=== PATIENT | female | born 1995 | race Caucasian/White ===

== ENCOUNTER 2017-07-19 15:03 | Outpatient (CLI) | payer BC ==
[~2017-07-19] VITALS: Ht 161.3 cm; Wt 61.7 kg
[2017-07-19 15:00] VITALS: BP 129/81
[2017-07-19 15:10] VITALS: BP 118/68
[2017-07-19] MEDS ORDERED: PREN1TAB86 PO (15:14)
[2017-07-19] MEDS ORDERED: SMTR50T PO (15:16)
[2017-07-19 15:41] VITALS: BP 120/70
[2017-07-19 16:08] VITALS: BP 103/59
[2017-07-19 16:16] LABS: BASOPHILS % (AUTO) 0 % (0-10); EOSINOPHILS # (AUTO) 0.1 10^3/uL (0.0-0.3); EOSINOPHILS % (AUTO) 1 % (0-10); LYMPHOCYTES # (AUTO) 1.3 X 10^3 (1.0-4.0); LYMPHOCYTES % (AUTO) 14 % (12-44); MEAN CORPUSCULAR HEMOGLOBIN 31 PG (25-34); MEAN CORPUSCULAR HGB CONC 35 G/DL (32-36); MEAN CORPUSCULAR VOLUME 89 FL (80-99); MEAN PLATELET VOLUME 11.3 FL (7.4-10.4); MONOCYTES # (AUTO) 0.8 X 10^3 (0.0-1.0); MONOCYTES % (AUTO) 9 % (0-12); NEUTROPHILS # (AUTO) 7.7 X 10^3 (1.8-7.8); NEUTROPHILS % (AUTO) 77 % (42-75); PLATELET COUNT 159 10^3/uL (130-400); RED BLOOD COUNT 3.55 10^6/uL (4.35-5.85); RED CELL DISTRIBUTION WIDTH 12.4 % (10.0-14.5); WHITE BLOOD COUNT 9.9 10^3/uL (4.3-11.0)
[2017-07-19 16:43] LABS: BAND NEUTROPHILS 8 %; BASOPHILS % (MANUAL) 0 %; EOSINOPHILS % (MANUAL) 3 %; LYMPHOCYTES % (MANUAL) 10 %; NEUTROPHILS % (MANUAL) 70 %
[2017-07-19 16:45] LABS: ALANINE AMINOTRANSFERASE 9 U/L (0-55); ALBUMIN 3.6 GM/DL (3.2-4.5); ANION GAP 10 MMOL/L (5-14); ASPARTATE AMINO TRANSFERASE 17 U/L (5-34); BILIRUBIN,TOTAL 0.3 MG/DL (0.1-1.0); BLOOD UREA NITROGEN 7 MG/DL (7-18); BUN/CREATININE RATIO 12; CALCIUM 8.5 MG/DL (8.5-10.1); CARBON DIOXIDE 21 MMOL/L (21-32); CHLORIDE 107 MMOL/L (98-107); CREATININE SERUM 0.59 MG/DL (0.60-1.30); GFR ESTIMATED > 60; GLUCOSE 93 MG/DL (70-105); POTASSIUM 3.5 MMOL/L (3.6-5.0); SODIUM 138 MMOL/L (135-145); TOTAL PROTEIN 6.4 GM/DL (6.4-8.2)
[2017-07-19 17:20] VITALS: BP 103/59
--- NOTE | 2017-07-22 17:53 | Physician Query-Final Dx ---
SILAS SILVA 07/22/17 1753: Clinic Account Progress/Dx Physician Query: Please give diagnosis Date of Service Jul 19, 2017 at 15:03 AYSHA MURILLO MD 07/23/17 0736: Clinic Account Progress/Dx DIAGNOSIS: Diagnosis -induced hypertension SILAS SILVA Jul 22, 2017 17:53 AYSHA MURILLO MD Jul 23, 2017 07:36
== END 2017-07-19 17:20 | disposition home or self-care (01) ==
LOC: WSo 15:03 → LDRP 15:04 → WSo 17:20
PROVIDERS: ATTEND Obstetrics & Gynecology
DX: O13.3 Gestational [pregnancy-induced] hypertension without significant proteinuria, third trimester (principal); Z3A.30 30 weeks gestation of pregnancy
CPT/HCPCS: 36415; 80053; 85007; 85027; 93005; 99213

== ENCOUNTER 2017-09-08 16:39 | Inpatient (IN) | payer BC ==
[2017-09-08] VITALS (19 sets, daily range): BP systolic 115–179; BP diastolic 57–107
[~2017-09-08] VITALS: Ht 162.6 cm; Wt 65.1 kg
[~2017-09-08 16:39] MED LIST: PREN1TAB86 PO; SMTR50T PO
[2017-09-08] MEDS ORDERED: D5 LR IV SOLUTION 1,000 ML IV ONE (17:07)
[2017-09-08] MEDS ORDERED: D5 LR IV SOLUTION 1,000 ML IV SCH (17:23)
[2017-09-08] MEDS ORDERED: PNV11TAB5 PO (17:27)
[2017-09-08] MEDS ORDERED: OXYTOCIN/NORMAL SALINE 500 ML IV SCH ×2 (17:30→20:02)
[2017-09-08 17:39] LABS: BILIRUBIN,URINE NEGATIVE (NEGATIVE); CLARITY,URINE CLEAR; COLOR,URINE YELLOW; GLUCOSE, URINE (UA) NEGATIVE (NEGATIVE); KETONES,URINE NEGATIVE (NEGATIVE); LEUKOCYTE ESTERASE ,URINE NEGATIVE (NEGATIVE); NITRITE,URINE NEGATIVE (NEGATIVE); PH,URINE 7 (5-9); PROTEIN,URINE NEGATIVE (NEGATIVE); UROBILINOGEN,URINE NORMAL (NORMAL)
[2017-09-08 17:45] LABS: BACTERIA,URINE NEGATIVE /HPF; SQUAMOUS EPITHELIAL CELL,UR 0-2 /HPF
[2017-09-08 18:07] LABS: BASOPHILS % (AUTO) 0 % (0-10); EOSINOPHILS % (AUTO) 0 % (0-10); HEMATOCRIT 37 % (35-52); HEMOGLOBIN 12.6 G/DL (11.5-16.0); LYMPHOCYTES # (AUTO) 1.1 X 10^3 (1.0-4.0); LYMPHOCYTES % (AUTO) 13 % (12-44); MEAN CORPUSCULAR HEMOGLOBIN 29 PG (25-34); MEAN CORPUSCULAR HGB CONC 34 G/DL (32-36); MEAN CORPUSCULAR VOLUME 85 FL (80-99); MEAN PLATELET VOLUME 11.1 FL (7.4-10.4); MONOCYTES # (AUTO) 0.6 X 10^3 (0.0-1.0); MONOCYTES % (AUTO) 7 % (0-12); NEUTROPHILS # (AUTO) 7.2 X 10^3 (1.8-7.8); NEUTROPHILS % (AUTO) 80 % (42-75); PLATELET COUNT 166 10^3/uL (130-400); RED BLOOD COUNT 4.36 10^6/uL (4.35-5.85); RED CELL DISTRIBUTION WIDTH 12.5 % (10.0-14.5)
[2017-09-08] MEDS ORDERED: BUTORPHANOL INJ 2 MG/ML (STADOL) VIAL ONE (18:14)
[2017-09-08] MEDS ORDERED: LIDOCAINE 1% INJ 20 ML (XYLOCAINE) VIAL ONE (18:29)
[2017-09-08] MEDS ORDERED: LIDOCAINE/EPI 2% 1:200,00 (XYLOCAINE) 10 ML VIAL ONE (18:30)
[2017-09-08] MEDS ORDERED: BUTORPHANOL INJ 2 MG/ML (STADOL) VIAL IV ONE (18:45)
--- NOTE | 2017-09-08 20:02 | History & Physical ---
History and Physical Date Seen by Provider: Sep 08, 2017 Time Seen by Provider: 20:00 this patient is a 22-year-old G1 white female with a due date of September 23, 2017 who presented this evening in labor. Membranes ruptured shortly after presentation. She has dilated beyond 4 cm at that point. She has had no bleeding to that point and has had no bleeding until spontaneous rupture during an exam. Patient had GBS culture after 35 weeks gestation that was negative. She's had no other problems with his VS . Allergies are none Medications are vitamins Past medical history, past surgical history, obstetric history, family history, social histories are per the antepartum record HEENT exam is normal Neck is supple no lymphadenopathy no thyromegaly Abdomen gravid soft nontender nondistended Extremities show no clubbing cyanosis. There is no Homans sign. Pelvic exam currently per the labor and delivery nurse is a cervix is 9 cm dilated. 80-90 percent effaced +1+2 station vertex Laboratory Tests Test 09/08/17 17:00 09/08/17 17:55 Range/Units Urine Color YELLOW Urine Clarity CLEAR Urine pH 7 5-9 Urine Specific [place] 1.005 L 1.016-1.022 Urine Protein NEGATIVE NEGATIVE Urine Glucose (UA) NEGATIVE NEGATIVE Urine Ketones NEGATIVE NEGATIVE Urine Nitrite NEGATIVE NEGATIVE Urine Bilirubin NEGATIVE NEGATIVE Urine Urobilinogen NORMAL NORMAL MG/DL Urine Leukocyte Esterase NEGATIVE NEGATIVE Urine RBC (Auto) NEGATIVE NEGATIVE Urine RBC NONE /HPF Urine WBC NONE /HPF Urine Squamous Epithelial Cells 0-2 /HPF Urine Crystals NONE /LPF Urine Bacteria NEGATIVE /HPF Urine Casts NONE /LPF Urine Mucus NEGATIVE /LPF Urine Culture Indicated NO White Blood Count 9.0 4.3-11.0 10^3/uL Red Blood Count 4.36 4.35-5.85 10^6/uL Hemoglobin 12.6 11.5-16.0 G/DL Hematocrit 37 35-52 % Mean Corpuscular Volume 85 80-99 FL Mean Corpuscular Hemoglobin 29 25-34 PG Mean Corpuscular Hemoglobin Concent 34 32-36 G/DL Red Cell Distribution Width 12.5 10.0-14.5 % Platelet Count 166 130-400 10^3/uL Mean Platelet Volume 11.1 H 7.4-10.4 FL Neutrophils (%) (Auto) 80 H 42-75 % Lymphocytes (%) (Auto) 13 12-44 % Monocytes (%) (Auto) 7 0-12 % Eosinophils (%) (Auto) 0 0-10 % Basophils (%) (Auto) 0 0-10 % Neutrophils # (Auto) 7.2 1.8-7.8 X 10^3 Lymphocytes # (Auto) 1.1 1.0-4.0 X 10^3 Monocytes # (Auto) 0.6 0.0-1.0 X 10^3 Eosinophils # (Auto) 0.0 0.0-0.3 10^3/uL Basophils # (Auto) 0.0 0.0-0.1 10^3/uL Lab work is reassuring Assessment and plan term at 37+ weeks' gestation with spontaneous labor and spontaneous rupture membranes. Patient has labored adequately spontaneously and is approaching second stage labor. We anticipate a vaginal delivery. 37+ weeks' gestation with spontaneous labor and spontaneous rupture membranes Allergies and Home Medications Allergies Coded Allergies: No Known Drug Allergies (Unverified , 07/19/17) Home Medications Bng345/FA/Omega3/Dha/Fish Oil 1 Each Tab.chew, 2 EACH PO DAILY, (Reported) Sumatriptan Succinate 50 Mg Tab, 50 MG PO PRN, (Reported) AYSHA MURILLO MD Sep 08, 2017 8:02 pm
[2017-09-08] MEDS ORDERED: TETANUS,DIPTH,PERTUSS P/F (BOOSTRIX) 0.5 ML VIAL IM ONE (20:15)
[2017-09-08] MEDS ORDERED: ONDANSETRON 4 MG/2 ML (SDV) Z0FRAN IVP PRN (20:15)
[2017-09-08] MEDS ORDERED: oxyCODONE/APAP 10/325MG (PERCOCET 10) TABLET PO PRN (20:15)
[2017-09-09] MEDS: DOCUSATE SODIUM 100 MG (COLACE) CAP PO SCH ×2 (00:02→08:40)
[2017-09-09] MEDS: KETOROLAC 30 MG/ML VIAL IV SCH ×2 (00:02→06:46)
--- NOTE | 2017-09-09 00:13 | OPERATIVE REPORT ---
DATE OF SERVICE: 09/08/2017 DELIVERY NOTE The patient delivered by term outlet forceps delivery, a viable female infant with Apgars of 8 and 9 at 1 and 5 minutes respectively, weight of 6 pounds and 5 ounces. Cord blood pH is pending and time was 2041. Charles forceps were applied with the presenting part at the perineum innominate, able to expel with the vertex over the perineum. Heart rate was in the 90s for about 7 minutes. Charles forceps were applied. Correct placement was confirmed and then with gentle traction with the next two contractions with gentle traction along the pelvic axis, the head delivered over the perineum. The Simpsons were removed. The delivery was accomplished in the usual manner from that point. The was bulb suctioned on delivery of the head and again on completion of delivery. The umbilical cord when pulseless was doubly clamped, the father cut the cord and the baby was passed to mom's abdomen. The had spontaneous cry, moved all extremities, had excellent tone and reflexes and the heart rate was well over 100 immediately after delivery. A midline episiotomy was performed under local analgesia. The episiotomy extended slightly at the left vaginal sulcus and the perineal skin superficially down to the left perianal verge. The sphincter muscles were intact. The defect was repaired with a single suture of 3-0 Vicryl Rapide in the usual manner until good reapproximation and good hemostasis. Sponge and needle counts were correct on completion of the repair. Estimated blood loss was around 300 mL. The remained in the LDR for recovery. The patient remained in the LDR as well. Job ID: [id number] DocumentID: [id number] Dictated Date: 09/08/2017 21:09:04 Windshield Repair Technician Date: 09/09/2017 00:12:59 Dictated By: AYSHA MURILLO MD MTDRamonita
[2017-09-09 00:30] VITALS: BP 120/69
[2017-09-09] MEDS ORDERED: WITCH HAZEL(TUCKS) 40 EA JAR ONE (00:30)
[2017-09-09] MEDS: WITCH HAZEL(TUCKS) 40 EA JAR TOP PRN (00:30)
[2017-09-09] MEDS: BENZOCAINE/MENTHOL (DERMOPLAST) 56 ML CAN TP PRN (00:30)
[2017-09-09] MEDS: CATHETER FLUSH 10 ML SYR IV SCH ×2 (03:47→06:47)
[2017-09-09 04:00] VITALS: BP 115/72
[2017-09-09] MEDS ORDERED: LIDOCAINE/EPI 2% 1:100,00 (XYLOCAINE) 20 ML VIAL INJ ONE (06:30)
[2017-09-09 08:42] VITALS: BP 118/78
--- NOTE | 2017-09-09 09:34 | Progress Note-Standard ---
Standard Progress Note Progress Notes/Assess & Plan Date Seen by Provider: Sep 09, 2017 Time Seen by Provider: 09:33 Progress/Assessment & Plan this patient is without complaint. She is ambulating, voiding, tolerating by mouth, has good pain control. Vital Signs Date Time Temp Pulse Resp B/P (MAP) Pulse Ox O2 Delivery O2 Flow Rate FiO2 09/09/17 08:42 98.0 76 18 118/78 (91) 98 Room Air 09/09/17 04:00 98.2 79 18 115/72 (86) 99 Room Air 09/09/17 00:30 98.2 78 18 120/69 (86) 100 Room Air 09/08/17 23:30 98.3 85 18 131/68 (89) Room Air 09/08/17 23:00 100 18 119/64 (82) Room Air 09/08/17 22:30 97.8 73 18 123/79 (94) Room Air 09/08/17 22:00 98.2 75 18 115/57 (76) Room Air 09/08/17 21:45 82 18 128/73 (91) Room Air 09/08/17 21:30 80 18 126/68 (87) Room Air 09/08/17 21:15 97.4 80 18 121/70 (87) Room Air 09/08/17 20:45 96.6 77 18 179/70 (106) Room Air 09/08/17 20:30 80 18 168/107 (127) Room Air 09/08/17 20:15 96.6 81 18 149/80 (103) Room Air 09/08/17 20:00 81 18 137/65 (89) Room Air 09/08/17 19:45 97.2 84 18 147/80 (102) Room Air 09/08/17 19:30 88 18 125/99 (108) Room Air 09/08/17 19:15 81 18 138/90 (106) Room Air 09/08/17 19:00 98.6 81 18 135/89 (104) Room Air 09/08/17 18:30 96 18 134/74 (94) Room Air 09/08/17 18:00 81 18 127/86 (100) Room Air 09/08/17 17:30 99.0 96 18 123/84 (97) Room Air 09/08/17 16:48 98.3 88 18 133/84 (100) Room Air vital signs are stable. Patient is afebrile. Fundus firm below the umbilicus and nontender. Extreme show no clubbing cyanosis. There is no Homans sign.There is some pretibial pitting edema that is normal. assessment and plan day number 1 status post term operative vaginal delivery doing well. Plan is for routine convalescence care today and consider discharge home tomorrow AYSHA MURILLO MD Sep 09, 2017 9:34 am
[2017-09-09] MEDS ORDERED: IBUP-1780 PO (09:35)
[2017-09-09] MEDS ORDERED: OXYC-465 PO (09:35)
[2017-09-09] MEDS ORDERED: DOCU100C37 PO (09:35)
--- NOTE | 2017-09-09 09:36 | Discharge Instructions ---
Discharge Instructions Discharge Medications New, Converted or Re-Newed RX: RX on Chart Patient Instructions Patient Instructions: as instructed Return to The Hospital For: as instructed Activity & Diet Discharge Diet: No Restrictions Activity as Tolerated: No Orders-Post D/C & Referrals Follow Up Appt: Call to make follow up appt. for patient in 4 weeks. Activity Per routine post vaginal delivery instructions. Diet as tolerated Patient may shower or tub bathe as desired. AYSHA MURILLO MD Sep 09, 2017 9:36 am
[2017-09-09] MEDS ORDERED: IBUPROFEN 800 MG (MOTRIN) TAB PO ONE (12:26)
[2017-09-09 12:30] VITALS: BP 101/66
[2017-09-09] MEDS: IBUPROFEN 800 MG (MOTRIN) TAB PO SCH ×2 (12:31→18:08)
[2017-09-09 16:34] VITALS: BP 120/81
[2017-09-09 22:15] VITALS: BP 109/66
[2017-09-10] MEDS: DOCUSATE SODIUM 100 MG (COLACE) CAP PO SCH ×2 (00:38→09:46)
[2017-09-10] MEDS: IBUPROFEN 800 MG (MOTRIN) TAB PO SCH ×3 (00:38→12:28)
[2017-09-10 00:40] VITALS: BP 126/79
[2017-09-10 06:22] VITALS: BP 103/64
--- NOTE | 2017-09-10 07:52 | Progress Note-Standard ---
Standard Progress Note Progress Notes/Assess & Plan Date Seen by Provider: Sep 10, 2017 Time Seen by Provider: 07:51 Progress/Assessment & Plan this patient is without complaint. She is ambulating, voiding, tolerating by mouth, has good pain control. Vital Signs Date Time Temp Pulse Resp B/P (MAP) Pulse Ox O2 Delivery O2 Flow Rate FiO2 09/09/17 08:42 98.0 76 18 118/78 (91) 98 Room Air 09/09/17 04:00 98.2 79 18 115/72 (86) 99 Room Air 09/09/17 00:30 98.2 78 18 120/69 (86) 100 Room Air 09/08/17 23:30 98.3 85 18 131/68 (89) Room Air 09/08/17 23:00 100 18 119/64 (82) Room Air 09/08/17 22:30 97.8 73 18 123/79 (94) Room Air 09/08/17 22:00 98.2 75 18 115/57 (76) Room Air 09/08/17 21:45 82 18 128/73 (91) Room Air 09/08/17 21:30 80 18 126/68 (87) Room Air 09/08/17 21:15 97.4 80 18 121/70 (87) Room Air 09/08/17 20:45 96.6 77 18 179/70 (106) Room Air 09/08/17 20:30 80 18 168/107 (127) Room Air 09/08/17 20:15 96.6 81 18 149/80 (103) Room Air 09/08/17 20:00 81 18 137/65 (89) Room Air 09/08/17 19:45 97.2 84 18 147/80 (102) Room Air 09/08/17 19:30 88 18 125/99 (108) Room Air 09/08/17 19:15 81 18 138/90 (106) Room Air 09/08/17 19:00 98.6 81 18 135/89 (104) Room Air 09/08/17 18:30 96 18 134/74 (94) Room Air 09/08/17 18:00 81 18 127/86 (100) Room Air 09/08/17 17:30 99.0 96 18 123/84 (97) Room Air 09/08/17 16:48 98.3 88 18 133/84 (100) Room Air vital signs are stable. Patient is afebrile. Fundus firm below the umbilicus and nontender. Extreme show no clubbing cyanosis. There is no Homans sign.There is some pretibial pitting edema that is normal. assessment and plan day number 1 status post term operative vaginal delivery doing well. Plan is for routine convalescence care today and consider discharge home tomorrow September 10, 2017 Patient is without complaint. She is ambulating, voiding, tolerating by mouth, has good pain control. Patient is requesting discharge home. Vital Signs Date Time Temp Pulse Resp B/P (MAP) Pulse Ox O2 Delivery O2 Flow Rate FiO2 09/10/17 06:22 98.0 88 18 103/64 (77) 100 Room Air 09/10/17 00:40 98.0 81 18 126/79 (95) 98 Room Air 09/09/17 22:15 98.3 80 18 109/66 (80) 100 Room Air 09/09/17 16:34 97.4 105 20 120/81 (94) 100 Room Air 09/09/17 12:30 97.9 104 18 101/66 (78) 100 Room Air 09/09/17 08:42 98.0 76 18 118/78 (91) 98 Room Air vital signs are stable. Patient is afebrile. Fundus is firm below the umbilicus and nontender. Extremities show no clubbing cyanosis. Homans sign. Minimal pretibial pitting edema that is normal. Assessment and plan day number 2 status post term operative vaginal delivery doing well. Plan is for discharge home Final Diagnosis term operative vaginal delivery AYSHA MURILLO MD Sep 10, 2017 7:52 am
[2017-09-10] MEDS ORDERED: DOCU-143 PO (07:53)
[2017-09-10] MEDS ORDERED: IBUP-1780 PO (07:53)
[2017-09-10] MEDS ORDERED: OXYC-465 PO (07:53)
[2017-09-10 09:30] VITALS: BP 110/78
[2017-09-10] MEDS: WITCH HAZEL(TUCKS) 40 EA JAR TOP PRN (14:20)
[2017-09-10] MEDS: BENZOCAINE/MENTHOL (DERMOPLAST) 56 ML CAN TP PRN (14:20)
[2017-09-10 14:55] VITALS: BP 110/78
== END 2017-09-10 14:55 | disposition home or self-care (01) | DRG 775 ==
LOC: WSo 16:39 → LDRP 16:39 → WSo 18:04 → LDRP 23:45
PROVIDERS: ADMIT Obstetrics & Gynecology; ATTEND Obstetrics & Gynecology
PROC: 0W8NXZZ Division of Female Perineum, External Approach (ICD-10-PCS; principal; 2017-09-08)
PROC: 10D07Z3 Extraction of Products of Conception, Low Forceps, Via Natural or Artificial Opening (ICD-10-PCS; 2017-09-08)
DX: O80 Encounter for full-term uncomplicated delivery (principal); Z3A.37 37 weeks gestation of pregnancy; Z37.0 Single live birth
CPT/HCPCS: 36415; 81000; 85025; 86850; 86900; 86901; 99212

== ENCOUNTER → 2021-03-09 | Outpatient (CLI) | payer BC ==
[~2021-03-09] MED LIST changes: +DOCU-143 PO; +DOCU100C37 PO; +IBUP-1780 PO; +OXYC-556 PO; +PNV11TAB5 PO
--- NOTE | 2021-03-09 11:34 | Diagnostic Imaging Report ---
INDICATION: Left shoulder pain. COMPARISON: None. FINDINGS: Multiple radiographic views of the left shoulder were obtained. There is no fracture, dislocation, or other acute bony abnormality identified. The soft tissues appear unremarkable. No radiopaque foreign bodies identified. The visualized portions of the left lung are clear. IMPRESSION: No acute fractures or dislocations of the left shoulder. Dictated by: Dictated on workstation # [id number]
== END ==
LOC: RAD FS 11:13
PROVIDERS: ATTEND Nurse Practitioner
DX: M25.512 Pain in left shoulder (principal)
CPT/HCPCS: 73030

== ENCOUNTER → 2021-03-15 | Outpatient (CLI) | payer BC ==
[~2021-03-15] MED LIST changes: +GADOBUTROL 7.5 MMOL/7.5 ML (GADAVIST) VIAL IV ONE
--- NOTE | 2021-03-15 13:07 | Diagnostic Imaging Report ---
EXAM: MRI thoracic spine w/wo con. INDICATION: Mass upper left side of the thoracic spine. COMPARISON: None. FINDINGS: Radiopaque marker indicating the area of interest overlying the posterior left back at the level of T3. There is no abnormal underlying mass, signal or enhancement identified. Normal alignment of the thoracic spine. Normal bone marrow signal. No substantial spondylotic change. No spinal canal or neural foraminal narrowing. No abnormal signal or enhancement in the thoracic spinal cord. Visualized paravertebral soft tissues are unremarkable. IMPRESSION: Normal MRI of the thoracic spine without and with IV contrast. Specifically, there is no mass, fluid collection, abnormal signal or enhancement adjacent to the radiopaque marker overlying the upper left back. Dictated by: Dictated on workstation # [id number]
== END ==
LOC: RAD 08:00
PROVIDERS: ATTEND Nurse Practitioner
DX: M89.9 Disorder of bone, unspecified (principal); M89.8X1 Other specified disorders of bone, shoulder; R22.32 Localized swelling, mass and lump, left upper limb; R22.2 Localized swelling, mass and lump, trunk
CPT/HCPCS: 72157

== ENCOUNTER 2021-05-31 15:21 | Emergency (ER) | payer BC ==
[~2021-05-31] VITALS: Ht 162 cm; Wt 54.0 kg
[~2021-05-31 15:21] MED LIST changes: -GADOBUTROL 7.5 MMOL/7.5 ML (GADAVIST) VIAL IV ONE
--- OUTSIDE RECORDS SUMMARY | 2021-05-31 15:25 | XMS REPORT | Encounter Summary ---
Author Author [facility] Organization [facility] Address Unknown Phone Unavailable Care Team Providers Care Manager Pe Name Role Phone Rachell Chen MD PCP Encounter Details Care Team Description Date Type Department Yokasta Holland PHARMD 05/12/2021 Documentation [facility] [address] [place] [address] Social History Date Tobacco Use Types Packs/Day Years Used Never Smoker Smokeless Tobacco: Never Used Comments Alcohol Use Standard Drinks/Week Never 0 (1 standard drink = 0.6 o z pure alcohol) Alcohol Habits Answer Date Recorded How often do you have a drink containing alcohol? Never 07/21/2020 How many drinks containing alcohol do you have on No t asked a typical day when you are drinking? How often do you have six or more drinks on one Not asked occasion? Comment: Not asked Sex Assigned at Date Recorded Not on file documented as of this encounter Progress Notes * Yokasta Holland PHARMD - 05/12/2021 2:16 PM CDT Pharmacy Medication Initial Assessment and Education Indication/Regimen The regimen of EMGALITY PEN 120 MG/ML SC PNIJ indefinitely is appropriate for Tal Campos Renal dose adjustments are not required. Hepatic dose adjustments are not requir ed. Dose titration is required. The following dose titration is planned 240mg once t hen 120mg monthly thereafter. The patient has the ability to self-administer the medication(s). Baseline Characteristics: Previously trialed medication(s) for this indication: nortriptyline, amitriptyli ne, topiramate, propranolol, magnesium, riboflavin, gabapentin, acetaminophen, i buprofen, ketorolac, methylprednisolone Other medication(s) patient is currently taking for this indication: sumatriptan Therapeutic Goals and Monitoring The goal of therapy is to reduce monthly migraine days and monthly acute migrain e-specific medication days. Activities of Daily Living Missed workdays in the past 30 days: 0 Days with missed social or leisure activities in the past 30 days: 0 Days unable to complete house/yard work in the past 30 days: 0 Headache Control Number of headache days: 30 Monthly migraine days: 8 Past Medical History: Medical History: Diagnosis Date Generalized headaches Migraines Allergies: No Known Allergies Immunizations: Vaccine history was reviewed with the patient. Education was provided on the imp ortance of completing vaccines, including annual influenza vaccine. There is no immunization history on file for this patient. Medication Reconciliation: Medication history and reconciliation were performed (including prescription med ications, supplements, over the counter, and herbal products). The medication li st was updated and the patients current medication list is included below. Th e patient was instructed to speak with their health care provider before startin g any new drug, including prescription or over the counter, natural / herbal pro ducts, or vitamins. Home Medications Medication Sig erenumab-aooe (AIMOVIG AUTOINJECTOR) 70 mg/mL injection syringe Inject 1 mL unde r the skin every 30 days. galcanezumab-gnlm (EMGALITY PEN) 120 mg/mL subcutaneous PEN Inject 2 mL under th e skin every 30 days for 30 days. galcanezumab-gnlm (EMGALITY PEN) 120 mg/mL subcutaneous PEN Inject 1 mL under th e skin every 30 days. norethindrone/ethinyl estradiol/iron (LOESTRIN FE) 1 mg/20 mcg tablet Take 1 tab let by mouth daily. Indications: control SUMAtriptan succinate (IMITREX) 100 mg tablet Take one tablet by mouth every 2 h ours as needed. Max dose 2 tabs per day Drug Interactions: Drug interactions were evaluated.There were not clinically significant drug inte ractions. Drug-Food Interactions: Drug-Food interactions were evaluated. There are significant drug-food interacti ons. This medication should be taken NA - injectable. Safety Precautions: Risk Evaluation and Mitigation (REMS) Assessment: REMS is not required for this medication. Safety precautions were addressed and discussed with the patient as applicable. Contraindications: Carlene Campos does not have contraindications to this medicati on. Status: Female, child-bearing potential. Education was provided. It is recommended to avoid during therapy and for at least 6 months followi ng completion of therapy. Contraception plan was not discussed. Risk versus bene fits were discussed with patient. Medication Education: Carlene Campos was provided with education on their specialty medication(s). Discu ssion with the patient included: the medication name, regimen, dosing, frequency , duration, proper administration, monitoring, common side effects, contraindica tions, safety precautions, and food/drug interactions to be aware of. Appropriat e storage, safe handling, and disposal directions were reviewed with the patient . Emphasis was placed on the importance of medication compliance. The patient's ability to self-administer medication was assessed. Requirements of the REMS pro gram were discussed with the patient as applicable. Recommended vaccinations wer e reviewed and discussed with the patient as applicable. The patient was instruc silvina to seek medical attention immediately if they experience signs of an allergi c reaction, including but not limited to: a rash; hives; itching; red, swollen, blistered, or peeling skin with or without fever. The monitoring and follow-up plan was discussed with the patient. The patient wa s instructed to contact their health care provider if their symptoms or health p roblems do not get better or if they become worse. Carlene Campos was instructed t o contact the specialty pharmacy at [phone] if they have any questions or c oncerns regarding their medication therapy. The patient was also encouraged to c ontact the pharmacist with any further questions. The patient verbalized accepta nce and understanding. Follow up Plan: The patient was counseled via telephone. The patient was provided the following type of education: full initial Carlene Campos was given the opportunity to ask questions and did not have any que stions at the time. The patient will be reassessed within 30 days. The medication(s) will be shipped from [facility]. Yokasta Holland PHARMD documented in this encounter Plan of Treatment Not on filedocumented as of this encounter Visit Diagnoses Not on filedocumented in this encounter
--- OUTSIDE RECORDS SUMMARY | 2021-05-31 15:25 | XMS REPORT | Encounter Summary ---
Author Author [facility] Organization [facility] Address Unknown Phone Unavailable Care Team Providers Care Documentation Nurse Name Role Phone Rachell Chen MD PCP Reason for Visit * Reason Onset Date Comments Medication Problem 05/10/2021 Encounter Details Care Team Description Date Type Department Omar Ames MD [address] [place] [address] Medication Problem 05/10/2021 Telephone Neurology: [facility] [address] [facility] [address] Social History Date Tobacco Use Types Packs/Day [...] on file documented as of this encounter Ordered Prescriptions Start Date End Date Prescription Sig Dispensed Refills 06/09/2021 galcanezumab-gnlm Inject 1 mL 1 mL 5 (EMGALITY PEN) 120 mg/mL under the subcutaneous PEN skin every 30 days. 05/10/2021 06/11/2021 galcanezumab-gnlm Inject 2 mL 2 mL 0 (EMGALITY PEN) 120 mg/mL under the subcutaneous PEN skin every 30 days for 30 days. documented in this encounter Miscellaneous Notes * Telephone Encounter - Monica Fox LPN - 05/10/2021 3:19 PM CDT Images from the original note were not included. Emgality script sent to pharmacy. documented in this encounter Plan of Treatment Not on filedocumented as of this encounter Visit Diagnoses Not on filedocumented in this encounter
--- OUTSIDE RECORDS SUMMARY | 2021-05-31 15:25 | XMS REPORT | Encounter Summary ---
Author Author [facility] Organization [facility] Address Unknown Phone Unavailable Care Team Providers Care Electrical Laboratory Technician Name Role Phone Rachell Chen MD PCP Encounter Details Care Team Description Date Type Department Linda Rosario 04/14/2021 Specialty [facility] tion Management [address] [place] [address] Social History Date Tobacco Use Types Packs/Day [...] as of this encounter Progress Notes * Linda Rosario - 04/14/2021 9:20 AM CDT Machine Heel Seat Fitter assistance have been received from patient Carlene Campos. Still wait ing on Dr. Pillo Cassidy for his signature. Once the documents have all been received this well be sent to [place]. GUSTAVO Smith documented in this encounter Plan of Treatment Not on filedocumented as of this encounter Visit Diagnoses Not on filedocumented in this encounter
--- OUTSIDE RECORDS SUMMARY | 2021-05-31 15:25 | XMS REPORT | Encounter Summary ---
Author Author [facility] Organization [facility] Address Unknown Phone Unavailable Care Team Providers Care Straight Line Edger Name Role Phone Rachell Chen MD PCP Encounter Details Care Team Description Date Type Department Linda Rosario 04/20/2021 Specialty [facility] tion Management [address] [place] [address] Social History Date Tobacco Use Types Packs/Day [...] encounter Progress Notes * Linda Rosario - 04/20/2021 11:57 AM CDT The medication assistance application for Aimovig has been denied for Carlene benjamin due to the following: Patient has a standing approval for Aimovig on file through her commercial insu arvin, [employer]. The patient and provider have been notified that Carlene Campos does not qualify f or medication assistance at this time. The current copay for is $512.00. I have message Monica Fox RN to Dr. Masters, to determine if patients doctor would change her migraine therapy to the alternative, Emgality. The specialty pharmacy is currently waiting on the providers response Called Carlene Campos to discuss the information stated above regarding her medica tion: Aimovig. Patient will be updated via My Chart and/or phone. Linda Ros[facility] Pharm[facility] Patient Advocate [phone] documented in this encounter Plan of Treatment Not on filedocumented as of this encounter Visit Diagnoses Not on filedocumented in this encounter
--- OUTSIDE RECORDS SUMMARY | 2021-05-31 15:25 | XMS REPORT | Encounter Summary ---
Author Author [facility] Organization [facility] Address Unknown Phone Unavailable Care Team Providers Care Can Reforming Machine Operator Name Role Phone Rachell Chen MD PCP Encounter Details Care Team Description Date Type Department Aditi Landis 05/12/2021 Specialty [facility] tion Management [address] [place] [address] Social History Date Tobacco Use Types Packs/Day [...] as of this encounter Progress Notes * Aditi Landis - 05/12/2021 1:32 PM CDT The Prior Authorization for Emgality was approved for Carlene Campos from 05/10/21 to 11/07/21. The copay is $0. The PA authorization number is [id number]. The ambulatory pharmacist has been notified of the approval in order to provide education prior to dispense of the medication. Will await notification from the pharmacist that it is OK to set up the fill per the patient's preferred delivery method. Aditi Landis Pharmacy Patient Advocate [phone] documented in this encounter Plan of Treatment Not on filedocumented as of this encounter Visit Diagnoses Not on filedocumented in this encounter
--- OUTSIDE RECORDS SUMMARY | 2021-05-31 15:25 | XMS REPORT | Encounter Summary ---
Author Author [facility] Organization [facility] Address Unknown Phone Unavailable Care Team Providers Care Arch Support Maker Name Role Phone Rachell Chen MD PCP Encounter Details Care Team Description Date Type Department Linda Rosario 04/18/2021 Specialty [facility] tion Management [address] [place] [address] Social History Date Tobacco Use Types Packs/Day [...] encounter Progress Notes * Linda Rosario - 04/18/2021 8:40 AM CDT The medication assistance application for Carlene Campos's specialty medication movkarina has been submitted to [employer](via fax ). A decision from the drug company/senior procurement specialist may take up to 30 business days. The specialty team w ill continue to follow. Linda Rosario Pharmacy Patient Advocate - Specialty Pharmacy [phone] documented in this encounter Plan of Treatment Not on filedocumented as of this encounter Visit Diagnoses Not on filedocumented in this encounter
--- OUTSIDE RECORDS SUMMARY | 2021-05-31 15:25 | XMS REPORT | Clinical Summary ---
Author Author [facility] Organization [facility] Address Unknown Phone Unavailable Care Team Providers Care Mold Dumper Name Role Phone Rachell Chen MD PCP Source Comments Some departments are not documenting in the electronic medical record. If you d o not see the information that you expected, contact Release of Information in [facility] [employer] Management department at [phone] for further assistan ce in locating additional records.[facility] Allergies No Known Active Allergies Medications End Date Status Medication Sig Dispensed Refills Start Date Active norethindrone/ethinyl Take 1 tablet 0 estradiol/iron (LOESTRIN by mouth FE) 1 mg/20 mcg daily. tabletIndications: Indications: contraception control Active SUMAtriptan succinate Take one 12 tablet 6 07/10 (IMITREX) 100 mg tablet tablet by 0 mouth every 2 hours as needed. Max dose 2 tabs per day 06/11/2021 Active galcanezumab-gnlm Inject 2 mL 2 mL 0 05/10/20 2 (EMGALITY PEN) 120 mg/mL under the 1 subcutaneous PEN skin every 30 days for 30 days. Active galcanezumab-gnlm Inject 1 mL 1 mL 5 06/09/20 2 (EMGALITY PEN) 120 mg/mL under the 1 subcutaneous PEN skin every 30 days. 05/12/2021 Discontinued (Duplicate Orde r) erenumab-aooe (AIMOVIG Inject 1 mL 2 mL 6 AUTOINJECTOR) 70 mg/mL under the 0 injection skin every 30 syringeIndications: days. migraine prevention Active Problems No known active problems Encounters Care Team Description Date Type Specialty Yokasta Holland, JANETTE 05/12/2021 Documentation Pharmacy Aditi Landis 05/12/2021 Specialty Pharmacy Pharmacy/Medica tion Management Abraham, Linda 05/11/2021 Specialty Pharmacy Pharmacy/Medica tion Management Omar Ames MD Medication Problem 05/10/2021 Telephone Neurology Rosario, Linda 04/20/2021 Specialty Pharmacy Pharmacy/Medica tion Management Rosario, Crystal 04/18/2021 Specialty Pharmacy Pharmacy/Medica tion Management Rosario, Crystal 04/18/2021 Specialty Pharmacy Pharmacy/Medica tion Management Rosario, Crystal 04/14/2021 Specialty Pharmacy Pharmacy/Medica tion Management Rosario, Crystal 04/14/2021 Specialty Pharmacy Pharmacy/Medica tion Management Isabela Lizama 04/11/2021 Specialty Pharmacy Pharmacy/Medica tion Management from Last 3 Months Surgical History Surgery Date Site/Laterality Comments CYST REMOVAL 09/09/2010 - 09/08/2011 Medical History Medical History Date Comments Generalized headaches Migraines Family History Medical History Relation Name Comments Cancer Maternal Grandmother Relation Name Status Comments Maternal Grandmother ovarian Social History Date Tobacco Use Types Packs/Day [...] Assigned at Date Recorded Not on file Last Filed Vital Signs Reading Time Taken Comments Vital Sign 147/90 12/22/2020 8:19 AM CDT Blood Pressure 61 12/22/2020 8:19 AM CDT Pulse - - Temperature - - Respiratory Rate - - Oxygen Saturation - - Inhaled Oxygen Concentration 54.4 kg (120 lb) 12/22/2020 8:19 AM CDT Weight 160 cm (5' 3") 12/22/2020 8:19 AM CDT Height 21.26 12/22/2020 8:19 AM CDT Body Mass Index Plan of Treatment Health Maintenance Due Date Last Done Comments HPV VACCINES (1 - 2-dose 2006 series) HIV SCREENING 2010 DTAP/TDAP VACCINES (1 - 2013 Tdap) HEPATITIS C SCREENING 2013 PHYSICAL (COMPREHENSIVE) 2013 EXAM CERVICAL CANCER SCREENING 02/28/2016 INFLUENZA VACCINE 06/09/2021 07/10/2017 Results Not on filefrom Last 3 Months Insurance Type Payer Benefit Subscriber ID Effective Phone Address Plan / Dates Group HMO [facility] [id number] 2019-[id number] [employer] ([place]) [place] [address] Advance Directives Patient Poly Area Supervisor Explanation Type Date Recorded Advance Directive/DPOA
--- OUTSIDE RECORDS SUMMARY | 2021-05-31 15:25 | XMS REPORT | Encounter Summary ---
Author Author [facility] Organization [facility] Address Unknown Phone Unavailable Care Team Providers Care Lubrication Equipment Servicer Name Role Phone Rachell Chen MD PCP Encounter Details Care Team Description Date Type Department Linda Rosario 05/11/2021 Specialty [facility] tion Management [address] [place] [address] Social History Date Tobacco Use Types Packs/Day [...] encounter Progress Notes * Linda Rosario - 05/11/2021 12:12 PM CDT The Prior Authorization for Emgality loading and maintenance dose was submitted for Carlene Campos via Cover [employer]. Will continue to follow. Linda Rosario Pharmacy Patient Advocate [phone] documented in this encounter Plan of Treatment Not on filedocumented as of this encounter Visit Diagnoses Not on filedocumented in this encounter
--- OUTSIDE RECORDS SUMMARY | 2021-05-31 15:26 | XMS REPORT | Encounter Summary ---
Author Author [facility] Organization [facility] Address Unknown Phone Unavailable Care Team Providers Care Carder Blankets Name Role Phone Rachell Chen MD PCP Encounter Details Care Team Description Date Type Department Isabela Lizama 04/11/2021 Specialty [facility] tion Management [address] [place] [address] Social History Date Tobacco Use Types Packs/Day [...] as of this encounter Progress Notes * Isabela Lizama - 04/11/2021 8:54 AM CDT Called Carlene Campos to discuss copay regarding their medication: Aimovig. LVM f or pt to return call to specialty @ [phone]. Copay card annual max is $3500 , this fill has a copay of $512.01 after exhausting copay card. Still over $7000 remaining on deductible. We can apply for assisitance thru medical clinic manager.. Isabela Lizama CPhT Pharmacy Patient Advocate, Specialty Pharmacy [phone] documented in this encounter Plan of Treatment Not on filedocumented as of this encounter Visit Diagnoses Not on filedocumented in this encounter
--- NOTE | 2021-05-31 15:41 | ED General ---
General Chief Complaint: General Problems/Pain Stated Complaint: DIZZY,LIGHTHEADED,HEART RATE FAST Nursing Triage Note: PT REPORTS SHE HAS HAD THIS FEELING SINCE 2018 OFF AND ON BUT TODAYS EPISODE STARTED AT 1330. SHE FEELS LIKE HER HEART IS RACING AND SHE GETS DIZZY. HR UPON ARRIVAL IS 86. Source of Information: Patient Exam Limitations: No Limitations History of Present Illness Date Seen by Provider: May 31, 2021 Time Seen by Provider: 15:41 Initial Comments Patient is a 26-year-old female with history of palpitations who presents with palpitations while at work starting 2 hours prior to ED arrival. Patient reports rapid pounding heartbeat with range in the 150s on her apple watch. Symptoms lasted up to 2 hours. Reports chest tightness. No shortness of breath nausea sweats. No abdominal pain no leg pain or swelling. Patient was evaluated by her PCP 3 days ago for the same thing. She states she had outpatient lab performed which is normal and she is scheduled for an outpatient Holter monitor in 3 days. Also reports increased anxiety state. Currently denies chest pain palpitations shortness of breath. No fever chills, sweats. No abdominal pain. No other acute symptoms or complaints. Timing/Duration: 1-3 Hours Severity: Mild Modifying Factors: improves with Other Associated Systoms: Other Allergies and Home Medications Allergies Coded Allergies: No Known Drug Allergies (Unverified , 07/19/17) Patient Home Medication List Home Medication List Reviewed: Yes Docusate Sodium (Colace) 100 Mg Capsule, 100 MG PO BID Prescribed by: AYSHA PICKETT on 09/10/17 075 Ibuprofen (Ibuprofen) 800 Mg Tablet, 800 MG PO Q6H PRN for PAIN Prescribed by: AYSHA PICKETT on 09/10/17 075 Oxycodone HCl/Acetaminophen (Oxycodone-Acetaminophen 10-325) 1 Each Tablet, 1-2 TAB PO Q4H PRN for PAIN Prescribed by: AYSHA PICKETT on 09/10/17 075 Mew190/FA/Omega3/Dha/Fish Oil ( Gummies) 1 Each Tab.chew, 2 EACH PO DAILY, (Reported) Entered as Reported by: BARRINGTON GANT on 09/08/17 1427 Sumatriptan Succinate (Imitrex) 50 Mg Tab, 50 MG PO PRN, (Reported) Entered as Reported by: KEISHA REYNOSO on 07/19/17 1516 Review of Systems Review of Systems Constitutional: no symptoms reported, see HPI EENTM: see HPI, no symptoms reported Respiratory: no symptoms reported, see HPI Cardiovascular: no symptoms reported Genitourinary: no symptoms reported Musculoskeletal: no symptoms reported Skin: no symptoms reported, see HPI Psychiatric/Neurological: No Symptoms Reported, See HPI Hematologic/Lymphatic: No Symptoms Reported, See HPI Past Yvxleas-Lxgimc-Hdcuph Hx Patient Social History Tobacco Use?: Yes Use of E-Cig and/or Vaping dev: No Substance use?: No Alcohol Use?: No Pt feels they are or have been: No Seasonal Allergies Seasonal Allergies: Yes (Cats) Past Medical History Surgeries: Yes (Cyst removed from Right wrist in 2010) Respiratory: No Cardiac: No Neurological: No Sexually Transmitted Disease: No HIV/AIDS: No Genitourinary: No Gastrointestinal: No Musculoskeletal: No Endocrine: No HEENT: Yes (Sinus problems) Loss of Vision: Denies Hearing Impairment: Denies Cancer: No Psychosocial: No Integumentary: No Blood Disorders: No Adverse Reaction/Blood Tranf: No Family Medical History Alzheimer's disease MATERNAL GRANDFATHER Asthma 19 FATHER G8 BROTHER Cataracts PATERNAL GRANDMOTHER Endometriosis 19 MOTHER FH: ovarian cancer MATERNAL GRANDMOTHER FH: skin cancer PATERNAL GRANDFATHER Hypercholesterolemia PATERNAL GRANDFATHER Physical Exam Vital Signs Vital Signs - First Documented 05/31/21 15:25 Temp 36.9 Pulse 86 Resp 16 B/P (MAP) 142/86 (104) Pulse Ox 100 O2 Delivery Room Air Capillary Refill : Less Than 3 Seconds Height, Weight, BMI Height: 5'4.00" Weight: 143lbs. 8.0oz. 65.003812nk; 20.00 BMI Method: General Appearance: No Apparent Distress, WD/WN Eyes: Bilateral Eye Normal Inspection, Bilateral Eye PERRL, Bilateral Eye EOMI HEENT: PERRL/EOMI, Pharynx Normal, Moist Mucous Membranes Neck: Non Tender, Supple Respiratory: Chest Non Tender, Lungs Clear Cardiovascular: Regular Rate, Rhythm, No Edema Gastrointestinal: Non Tender, Soft Back: Normal Inspection, No CVA Tenderness Neurologic/Psychiatric: Alert, Oriented x3 Skin: Normal Color Focused Exam Sepsis Stage: Ruled Out Progress/Results/Core Measures Suspected Sepsis SIRS Temperature: Pulse: 86 Respiratory Rate: 16 Blood Pressure 142 /86 Mean: 104 Results/Orders My Orders Orders - ARUN ESTEBAN DO Lorazepam Tablet (Ativan Tablet) (05/31/21 15:48) Vital Signs/I&O 05/31/21 15:25 Temp 36.9 Pulse 86 Resp 16 B/P (MAP) 142/86 (104) Pulse Ox 100 O2 Delivery Room Air Capillary Refill : Less Than 3 Seconds Blood Pressure Mean: 104 Departure Communication (Admissions) EKG: Normal sinus rhythm, no acute ST-T wave changes. Patient given Ativan in more relaxed. Heart rate remains in the normal sinus range. Will provide short course of anxiety medication until she can follow-up with her PCP for Holter monitor study. Return precautions reviewed. Patient verbalizes understanding and agreement discharge instructions prior to departure Impression Primary Impression: Palpitation Additional Impression: Anxiety state Disposition: HOME, SELF-CARE Condition: Stable Departure-Patient Inst. Decision time for Depature: 16:31 Referrals: NURIS SUTTON MD (PCP) Primary Care Physician KARTIK VANN APRN (Family) Primary Care Physician Patient Instructions: Palpitations, Generalized Anxiety Disorder Add. Discharge Instructions: You were evaluated in the emergency department for fast pounding heart rate. The cause of your symptoms has not been determined. Please follow-up with your Holter monitor as scheduled. Please take anxiety medication if symptoms recur. If they persist greater than 20 minutes return to the emergency department. All discharge instructions reviewed with patient and/or family. Voiced understanding. Scripts Lorazepam (Ativan) 1 Mg Tablet 1 MG PO q6 PRN for ANXIETY for 7 Days, #10 TAB Prov: ARUN ESTEBAN DO 05/31/21 ARUN ESTEBAN DO May 31, 2021 15:41
[2021-05-31] MEDS: LORazepam 0.5 MG (ATIVAN) TABLET PO STA (15:55)
[2021-05-31] MEDS ORDERED: LORA-405 PO (16:35)
[2021-05-31 16:37] VITALS: BP 124/74
== END 2021-05-31 16:38 | disposition home or self-care (01) ==
LOC: EDUNIT# 15:21 → ER FS 15:22
DX: R00.2 Palpitations (principal); F41.9 Anxiety disorder, unspecified
CPT/HCPCS: 93005

== ENCOUNTER → 2021-06-05 | Outpatient (CLI) | payer BC ==
[~2021-06-05] MED LIST changes: +LORA-405 PO
== END ==
LOC: CARD 11:30
PROVIDERS: ATTEND Nurse Practitioner Family
DX: R42 Dizziness and giddiness (principal); R00.2 Palpitations
CPT/HCPCS: 93225; 93226

== ENCOUNTER → 2021-07-20 | Outpatient (CLI) | payer BC | LOC: CARD 12:00 | PROVIDERS: ATTEND Internal Medicine Cardiovascular Disease | DX: I49.1 Atrial premature depolarization (principal) | CPT/HCPCS: 93306 ==